=== PATIENT | male | born 1995 | race Caucasian/White ===

== ENCOUNTER → 2017-03-27 | Outpatient (CLI) | payer OTHER, MEDICAID ==
[~2017-03-27] MED LIST: ABILIFY15 MG PO; AUGMENTIN 875 M1 TAB PO; CLARITIN10 MG PO; KEFLEX500 MG PO; NORCO 325 MG-51 TAB PO; PEN-VK500 MG PO
== END | disposition home or self-care (01) ==
LOC: US 02:49
DX: I82.493 Acute embolism and thrombosis of other specified deep vein of lower extremity, bilateral (principal); M79.89 Other specified soft tissue disorders

== ENCOUNTER → 2017-06-03 | Outpatient (CLI) | payer OTHER, MEDICAID ==
[2017-06-03 16:13] LABS: BASO % 0.4 % (0.0-1.0); EOS # 0.1 10*3/uL (0.0-0.4); EOS % 0.9 % (1.0-4.0); HEMATOCRIT 45.1 % (42.0-52.0); HEMOGLOBIN 14.5 g/dl (14.0-18.0); LYMPH # 1.5 10*3/uL (1.3-4.4); MEAN CELL VOLUME 85.6 fl (80.0-94.0); MEAN CORPUSCULAR HGB 27.5 pg (27.0-31.0); MEAN CORPUSCULAR HGB CONC 32.2 g/dl (33.0-37.0); MEAN PLATELET VOLUME 10.9 fl (9.6-12.3); MONO # 0.8 10*3/uL (0.1-1.0); MONO % 9.4 % (3.0-9.0); NEUT # 5.8 10*3/uL (2.3-7.9); NEUT % 71.1 % (47.0-73.0); PLATELET COUNT AUTOMATED 212 10*3/uL (130-400); RED BLOOD COUNT 5.27 10*6/uL (4.50-5.90); RED CELL DISTRI WIDTH 13.2 % (0-14.5); WHITE BLOOD COUNT 8.1 10*3/uL (4.8-10.8)
[2017-06-03 16:41] LABS: ALBUMIN 3.6 gm/dl (3.1-4.5); ALKALINE PHOSPHATASE 91 U/L (45-117); BILIRUBIN, TOTAL 0.6 mg/dl (0.2-1.0); BUN 14 mg/dl (7-24); CARBON DIOXIDE 26 mmol/L (21-32); CHLORIDE 109 mmol/L (98-107); EST GLOM FILT AFRICAN AMERICAN > 60 ml/min; GLUCOSE 81 mg/dL (65-99); POTASSIUM 4.1 mmol/L (3.5-5.1); SGOT/AST 15 IU/L (3-35); SGPT/ALT 17 U/L (12-78); SODIUM 142 mmol/L (136-145); TOTAL PROTEIN 7.3 gm/dL (6.4-8.2)
[2017-06-03 16:47] LABS: THYROID STIM HORMONE (HS) 0.788 uIU/ml (0.358-4.75)
== END | disposition home or self-care (01) ==
LOC: LAB 15:44
PROVIDERS: Family Medicine
DX: E66.9 Obesity, unspecified (principal); R60.0 Localized edema

== ENCOUNTER → 2021-04-18 | Outpatient (CLI) | payer MEDICAID | END | disposition home or self-care (01) | LOC: US 15:30 | PROVIDERS: ATTEND Podiatrist | DX: R60.0 Localized edema (principal) ==

== ENCOUNTER 2021-09-23 19:55 | Emergency (ER) | payer MEDICAID ==
[~2021-09-23] VITALS: Ht 175.2 cm; Wt 72.6 kg
== END 2021-09-23 22:26 | disposition home or self-care (01) ==
LOC: ED 19:55
DX: S70.01XA Contusion of right hip, initial encounter (principal); Z20.822 Contact with and (suspected) exposure to COVID-19; R05.9 Cough, unspecified; R09.81 Nasal congestion; W18.39XA Other fall on same level, initial encounter; Y93.89 Activity, other specified; Y92.89 Other specified places as the place of occurrence of the external cause; Y99.8 Other external cause status

== ENCOUNTER → 2022-10-20 | Outpatient (CLI) | payer MEDICAID ==
[2022-10-20 15:16] LABS: BASO % 0.5 % (0.0-1.0); EOS # 0.1 10*3/uL (0.0-0.4); EOS % 1.2 % (1.0-4.0); HEMATOCRIT 46.4 % (42.0-52.0); LYMPH # 1.7 10*3/uL (1.3-4.4); LYMPH % 20.4 % (27.0-41.0); MEAN CELL VOLUME 86.1 fl (80.0-94.0); MEAN CORPUSCULAR HGB CONC 32.5 g/dl (33.0-37.0); MEAN PLATELET VOLUME 10.5 fl (9.6-12.3); MONO # 0.7 10*3/uL (0.1-1.0); MONO % 8.2 % (3.0-9.0); NEUT # 5.9 10*3/uL (2.3-7.9); NEUT % 69.5 % (47.0-73.0); PLATELET COUNT AUTOMATED 263 10*3/uL (130-400); RED BLOOD COUNT 5.39 10*6/uL (4.50-5.90); RED CELL DISTRI WIDTH 13.3 % (0-14.5); WHITE BLOOD COUNT 8.5 10*3/uL (4.8-10.8)
[2022-10-20 15:31] LABS: INTERNATIONAL NORM RATIO 0.9 (2.0-3.5)
[2022-10-20 15:34] LABS: BUN 13 mg/dl (7-24); CHLORIDE 110 mmol/L (98-107); CREATININE 1.28 mg/dL (0.70-1.30); POTASSIUM 4.2 mmol/L (3.5-5.1); SODIUM 141 mmol/L (136-145)
== END | disposition home or self-care (01) ==
LOC: LAB 14:41
PROVIDERS: ATTEND Surgery Vascular Surgery
DX: Z01.812 Encounter for preprocedural laboratory examination (principal)

== ENCOUNTER → 2022-12-12 | Outpatient (CLI) | payer MEDICAID | END | disposition home or self-care (01) | LOC: RAD 15:17 | PROVIDERS: ATTEND Surgery Vascular Surgery | DX: S92.301G Fracture of unspecified metatarsal bone(s), right foot, subsequent encounter for fracture with delayed healing (principal); M79.89 Other specified soft tissue disorders; X58.XXXD Exposure to other specified factors, subsequent encounter ==

== ENCOUNTER → 2024-10-13 | Outpatient (CLI) | payer MEDICAID | END | disposition home or self-care (01) | LOC: LAB 10-12 16:17 | PROVIDERS: ATTEND Internal Medicine | DX: R50.9 Fever, unspecified (principal) ==

== ENCOUNTER → 2025-07-19 | Outpatient (CLI) | payer MEDICAID ==
[2025-07-19 14:19] LABS: LDL CHOLESTEROL 70 mg/dL (9-159)
== END ==
LOC: LAB 13:17
PROVIDERS: ATTEND Psychiatry & Neurology Psychiatry
DX: Z51.81 Encounter for therapeutic drug level monitoring (principal); Z79.899 Other long term (current) drug therapy